=== PATIENT | female | born 1955 | race Caucasian/White ===

== ENCOUNTER → 2017-05-16 | Day surgery (SDC) | payer BC ==
[2017-05-07 15:27] VITALS: BMI 27.0
[~2017-05-16] VITALS: Ht 154.9 cm; Wt 68.2 kg
[~2017-05-16] MED LIST: BND25 PO; BND25X PO; CHOL1000 PO; CHOL100010 PO; LIDOCAINE HCL 2% 2 ML VIAL (20MG/ML) ONE; MELA1TAB3 PO; MIDAZOLAM HCL 1 MG/ML 2ML VIAL ONE; PROPOFOL IV EMULSION 10 MG/ML 20 ML VIAL IV ONE; SODIUM CHLORIDE 0.9% 500ML 500 ML IV ONE; TRAV0.00 OPB
[2017-05-16 08:28] VITALS: Ht 154.9 cm; Wt 68.2 kg
--- NOTE | 2017-05-16 08:43 | Endo History and Physical ---
History & Physical Date of Service: May 16, 2017. Chief Complaint: BARRETTS ESOPHAGUS Referring Physician: DR VALENTINE History of Present Illness 61 yo CF who presents for EGD secondary to Bear's Esophagus. Past Surgical History Hx Cardiac Surgery: No Hx Internal Defibrillator: No Hx Pacemaker: No Hx Abdominal Surgery: Yes (UTERINE ABLATION) Hx of Implantable Prosthesis: No Hx Post-Op Nausea and Vomiting: No Hx Cancer Surgery: Yes (BCC REMOVED) Hx Thoracic Surgery: No Hx Orthopedic: No Hx Urinary Tract Surgery: No Family History None Social History Smoking Status: Never Smoker Hx Substance Use: No Hx Alcohol Use: No Allergies Coded Allergies: [place] Oil (Unverified Allergy, Unknown, DIZZY, 05/16/17) Sulfa Drugs (Verified Adverse Reaction, Mild, GI SYMPTOMS,NAUSEA, 05/07/17) Current Medications Reported Home Medications Medications Dose Route/Sig Max Daily Dose Days Date Category Travatan Z (Travoprost) 0.004 % Malcolm 1 Drops OPB HS 05/07/17 Reported Melatonin (Melatonin-Pyridoxine) 1 Tab Tab 1 Mg PO HS 02/20/17 Reported Benadryl * (Diphenhydramine HCl) 25 Mg Tab 25 Mg PO HS 08/26/11 Reported Vitamin D (Cholecalciferol) 1,000 Inter.unit Tab 1,000 Inter.unit PO BID 08/26/11 Reported Vital Signs Weight (Kilograms): 68.18 Height (Feet): 5 Height (Inches): 1 Date Time Temp Pulse Resp B/P (MAP) Pulse Ox O2 Delivery O2 Flow Rate FiO2 05/16/17 08:27 36.5 72 18 139/73 (95) 97 Room Air Physical Exam General Appearance: WD/WN, no apparent distress Respiratory/Chest: Auscultation: breath sounds normal Cardiovascular: Heart Auscultation: RRR Abdomen: Bowel Sounds: normal Inspection & Palpation: soft, non-distended, no tenderness, guarding & rebound Assessment and Plan Assessment: 61 yo CF who presents for EGD secondary to Bear's Esophagus. Plan: Proceed with EGD.
--- NOTE | 2017-05-16 09:12 | GI REPORT ---
Procedure Date: 05/16/2017 8:56 AM Procedure: Upper GI endoscopy Indications: Follow-up of Bear's esophagus Medicines: Monitored Anesthesia Care Complications: No immediate complications. Estimated Blood Loss: Estimated blood loss: none. Procedure: Pre-Anesthesia Assessment: - Prior to the procedure, a History and Physical was performed, and patient medications and allergies were reviewed. The patient's tolerance of previous anesthesia was also reviewed. The risks and benefits of the procedure and the sedation options and risks were discussed with the patient. All questions were answered, and informed consent was obtained. Prior Anticoagulants: The patient has taken no previous anticoagulant or antiplatelet agents. ASA Grade Assessment: II - A patient with mild systemic disease. After reviewing the risks and benefits, the patient was deemed in satisfactory condition to undergo the procedure. After obtaining informed consent, the endoscope was passed under direct vision. Throughout the procedure, the patient's blood pressure, pulse, and oxygen saturations were monitored continuously. The scope was introduced through the mouth, and advanced to the second part of duodenum. The upper GI endoscopy was accomplished without difficulty. The patient tolerated the procedure well. Findings: There were esophageal mucosal changes consistent with short-segment Bear's esophagus present at the gastroesophageal junction. The maximum longitudinal extent of these mucosal changes was 2 cm in length. Mucosa was biopsied with a cold forceps for histology. One specimen bottle was sent to pathology. Localized mild inflammation characterized by erythema was found in the gastric antrum. Biopsies were taken with a cold forceps for histology. The examined duodenum was normal. Impression: - Esophageal mucosal changes consistent with short-segment Bear's esophagus. Biopsied. - Gastritis. Biopsied. - Normal examined duodenum. Recommendation: - Resume previous diet. - Continue present medications. - Await pathology results. - Return to primary care physician as previously scheduled. Cm Correia DO 05/16/2017 9:11:28 AM This report has been signed electronically. Note Initiated On: 05/16/2017 8:56 AM I attest to the content of the Intraoperative Record and orders documented therein, exceptions below
--- NOTE | 2017-05-16 09:15 | Discharge Instructions ---
Endoscopy Patient Instructions Date / Procedure(s) Performed May 16, 2017. EGD Allergy Information Coded Allergies: [place] Oil (Unverified Allergy, Unknown, DIZZY, 05/16/17) Sulfa Drugs (Verified Adverse Reaction, Mild, GI SYMPTOMS,NAUSEA, 05/07/17) Discharge Date / Findings May 16, 2017. Bear's esophagus s/p biopsies Gastritis s/p biopsies Medication Instructions OK to resume all medications today as prescribed Reported Home Medications Medications Dose Route/Sig Max Daily Dose Days Date Category Travatan Z (Travoprost) 0.004 % Malcolm 1 Drops OPB HS 05/07/17 Reported Melatonin (Melatonin-Pyridoxine) 1 Tab Tab 1 Mg PO HS 02/20/17 Reported Benadryl * (Diphenhydramine HCl) 25 Mg Tab 25 Mg PO HS 08/26/11 Reported Vitamin D (Cholecalciferol) 1,000 Inter.unit Tab 1,000 Inter.unit PO BID 08/26/11 Reported Provider Instructions Activity Restrictions - No exercising or heavy lifting for 24 hours. - Do not drink alcohol the day of the procedure. - Do not drive a car or operate machinery until the day after the procedure. - Do not make any important decisions or sign important papers in 24 hours after the procedure. Following Day: - Return to full activity which may include returning to work/school. Diet Start your diet with liquids and light foods (jello, soup, juice, toast). Then eat your usual diet if not nauseated. Treatment For Common After Affects For mild abdominal pain, bloating, or excessive gas: - Rest - Eat lightly - Lie on right side Follow-Up Information Follow-up with DR VALENTINE as scheduled Anesthesia Information What You Should Know You have had a procedure that required some medicine to reduce anxiety and discomfort. This treatment is called moderate sedation. After receiving the treatment, you may be sleepy, but you will be able to breathe on your own. The effects of the treatment may last for several hours. Follow these instructions along with Activity/Diet recommendations noted above: * Do NOT do anything where dizziness or clumsiness would be dangerous. * Rest quietly at home today, then you can be up and about tomorrow. * Have a responsible person stay with you the rest of today. * You may have had an I.V. today. If so, you may take the dressing off later today. Recommendations Call your doctor if: * Trouble breathing * Continuous vomiting for more than 24 hours * Temperature above 101 degrees * Severe abdominal pain or bloating * Pain not relieved by pain medicine ordered * There is increased drainage or redness from any incision * A large amount of rectal bleeding greater than 2-3 tablespoons. (If you had a polyp/s removed or have hemorrhoids, a small amount of blood - from the rectum is to be expected.) * You have any unanswered questions or concerns. IN THE EVENT OF A SERIOUS EMERGENCY, GO TO THE NEAREST EMERGENCY ROOM Your discharge instructions were prepared by provider Cm Correia. Patient Instructions Signature Page Meagan Givens Patient (or Guardian) Signature/Date: I have read and understand the instructions given to me by my caregivers. Caregiver/RN/Doctor Signature/Date: The above-named patient and/or guardian has received patient instructions on this date. + Original Patient Signature Page (only) stays with chart. Please make copy for patient.
--- NOTE | 2017-05-16 09:42 | Anesthesiology Progress Note ---
Anesthesia Post Op Note Date & Time May 16, 2017 at 09:42 Vital Signs Pain Intensity: 0 Vital Signs Past 12 Hours Date Time Temp Pulse Resp B/P (MAP) Pulse Ox O2 Delivery O2 Flow Rate FiO2 05/16/17 09:30 64 16 113/65 (81) 95 Room Air 05/16/17 09:15 69 14 111/65 (80) 95 Room Air 05/16/17 08:27 36.5 72 18 139/73 (95) 97 Room Air Notes Mental Status: alert / awake / arousable, participated in evaluation Pt Amnestic to Procedure: Yes Nausea / Vomiting: adequately controlled Pain: adequately controlled Airway Patency, RR, SpO2: stable & adequate BP & HR: stable & adequate Hydration State: stable & adequate Anesthetic Complications: no major complications apparent
[2017-05-16 09:45] VITALS: BP 123/77; PULSE 63; O2SAT 95
== END | disposition home or self-care (01) ==
LOC: C.GI 08:11
PROVIDERS: ATTEND Internal Medicine
DX: K22.70 Barrett's esophagus without dysplasia (principal); K29.50 Unspecified chronic gastritis without bleeding

== ENCOUNTER → 2017-11-26 | Day surgery (SDC) | payer BC ==
[2017-11-14 15:35] VITALS: Ht 156.2 cm; Wt 68.2 kg
[~2017-11-26] VITALS: Ht 156.2 cm; Wt 68.2 kg
[~2017-11-26] MED LIST changes: -BND25 PO; -BND25X PO; -CHOL1000 PO; -CHOL100010 PO; +CHOL2000 PO; +LANS15CA6 PO; +ONDANSETRON INJ 2 MG/ML 2 ML VIAL ONE
--- NOTE | 2017-11-26 08:40 | Endo History and Physical ---
History & Physical Date of Service: Nov 26, 2017. Chief Complaint: Bear's Esophagus Referring Physician: Dr. Santiago History of Present Illness 62 yo CF who presents for colonoscopy secondary to Bear's Esophagus. Past Surgical History Hx Cardiac Surgery: No Hx Internal Defibrillator: No Hx Pacemaker: No Hx Abdominal Surgery: Yes (UTERINE ABLATION) Hx of Implantable Prosthesis: No Hx Post-Op Nausea and Vomiting: No Hx Cancer Surgery: Yes (BCC REMOVED) Hx Thoracic Surgery: No Hx Orthopedic: No Hx Urinary Tract Surgery: No Family History None Social History Smoking Status: Never Smoker Hx Substance Use: No Hx Alcohol Use: No Allergies Coded Allergies: [place] Oil (Verified Allergy, Unknown, DIZZY, 11/14/17) Sulfa Drugs (Verified Adverse Reaction, Mild, GI SYMPTOMS,NAUSEA, 11/14/17) Current Medications Reported Home Medications Medications Dose Route/Sig Max Daily Dose Days Date Category Vitamin D3 (Cholecalciferol) 2,000 Unit Cap 1 Cap PO BID 11/14/17 Reported Prevacid (Lansoprazole) 15 Mg Capcr 15 Mg PO DAILY AT 0300 11/14/17 Reported Travatan Z (Travoprost) 0.004 % Malcolm 1 Drops OPB HS 05/07/17 Reported Melatonin (Melatonin-Pyridoxine) 1 Tab Tab 1 Mg PO HS 02/20/17 Reported Vital Signs Weight (Kilograms): 68.18 Height (Feet): 5 Height (Inches): 1.5 Physical Exam General Appearance: WD/WN, no apparent distress Respiratory/Chest: Auscultation: breath sounds normal Cardiovascular: Heart Auscultation: RRR Abdomen: Bowel Sounds: normal Inspection & Palpation: soft, non-distended, no tenderness, guarding & rebound Assessment and Plan Assessment: 62 yo CF who presents for colonoscopy secondary to Bear's Esophagus. Plan: Proceed with EGD.
--- NOTE | 2017-11-26 09:30 | GI REPORT ---
Procedure Date: 11/26/2017 8:44 AM Procedure: Upper GI endoscopy Indications: Follow-up of Bear's esophagus Medicines: Monitored Anesthesia Care Complications: No immediate complications. Estimated Blood Loss: Estimated blood loss: none. Procedure: Pre-Anesthesia Assessment: - Prior to the procedure, a History and Physical was performed, and patient medications and allergies were reviewed. The patient's tolerance of previous anesthesia was also reviewed. The risks and benefits of the procedure and the sedation options and risks were discussed with the patient. All questions were answered, and informed consent was obtained. Prior Anticoagulants: The patient has taken no previous anticoagulant or antiplatelet agents. ASA Grade Assessment: II - A patient with mild systemic disease. After reviewing the risks and benefits, the patient was deemed in satisfactory condition to undergo the procedure. After obtaining informed consent, the endoscope was passed under direct vision. Throughout the procedure, the patient's blood pressure, pulse, and oxygen saturations were monitored continuously. The scope was introduced through the mouth, and advanced to the second part of duodenum. The upper GI endoscopy was accomplished without difficulty. The patient tolerated the procedure well. Findings: There were esophageal mucosal changes suspicious for short-segment Bear's esophagus present at the gastroesophageal junction. The maximum longitudinal extent of these mucosal changes was 1 cm in length. Biopsies were taken with a cold forceps for histology. The stomach was normal. The examined duodenum was normal. Impression: - Esophageal mucosal changes suspicious for short-segment Bear's esophagus. Biopsied. - Normal stomach. - Normal examined duodenum. Recommendation: - Resume previous diet. - Continue present medications. - Await pathology results. - Return to primary care physician as previously scheduled. Cm Correia, DO 11/26/2017 9:29:44 AM This report has been signed electronically. Note Initiated On: 11/26/2017 8:44 AM I attest to the content of the Intraoperative Record and orders documented therein, exceptions below
--- NOTE | 2017-11-26 09:31 | Discharge Instructions ---
Endoscopy Patient Instructions Date / Procedure(s) Performed Nov 26, 2017. EGD Allergy Information Coded Allergies: [place] Oil (Verified Allergy, Unknown, DIZZY, 11/14/17) Sulfa Drugs (Verified Adverse Reaction, Mild, GI SYMPTOMS,NAUSEA, 11/14/17) Discharge Date / Findings Nov 26, 2017. Bear's Esophagus s/p biopsies Medication Instructions OK to resume all medications today as prescribed Reported Home Medications Medications Dose Route/Sig Max Daily Dose Days Date Category Vitamin D3 (Cholecalciferol) 2,000 Unit Cap 1 Cap PO BID 11/14/17 Reported Prevacid (Lansoprazole) 15 Mg Capcr 15 Mg PO DAILY AT 0300 11/14/17 Reported Travatan Z (Travoprost) 0.004 % Malcolm 1 Drops OPB HS 05/07/17 Reported Melatonin (Melatonin-Pyridoxine) 1 Tab Tab 1 Mg PO HS 02/20/17 Reported Provider Instructions Activity Restrictions - No exercising or heavy lifting for 24 hours. - Do not drink alcohol the day of the procedure. - Do not drive a car or operate machinery until the day after the procedure. - Do not make any important decisions or sign important papers in 24 hours after the procedure. Following Day: - Return to full activity which may include returning to work/school. Diet Start your diet with liquids and light foods (jello, soup, juice, toast). Then eat your usual diet if not nauseated. Treatment For Common After Affects For mild abdominal pain, bloating, or excessive gas: - Rest - Eat lightly - Lie on right side Follow-Up Information Follow-up with Dr. Vance Santiago as scheduled Anesthesia Information What You Should Know You have had a procedure that required some medicine to reduce anxiety and discomfort. This treatment is called moderate sedation. After receiving the treatment, you may be sleepy, but you will be able to breathe on your own. The effects of the treatment may last for several hours. Follow these instructions along with Activity/Diet recommendations noted above: * Do NOT do anything where dizziness or clumsiness would be dangerous. * Rest quietly at home today, then you can be up and about tomorrow. * Have a responsible person stay with you the rest of today. * You may have had an I.V. today. If so, you may take the dressing off later today. Recommendations Call your doctor if: * Trouble breathing * Continuous vomiting for more than 24 hours * Temperature above 101 degrees * Severe abdominal pain or bloating * Pain not relieved by pain medicine ordered * There is increased drainage or redness from any incision * A large amount of rectal bleeding greater than 2-3 tablespoons. (If you had a polyp/s removed or have hemorrhoids, a small amount of blood - from the rectum is to be expected.) * You have any unanswered questions or concerns. IN THE EVENT OF A SERIOUS EMERGENCY, GO TO THE NEAREST EMERGENCY ROOM Your discharge instructions were prepared by provider Cm Correia. Patient Instructions Signature Page Meagan Givens Patient (or Guardian) Signature/Date: I have read and understand the instructions given to me by my caregivers. Caregiver/RN/Doctor Signature/Date: The above-named patient and/or guardian has received patient instructions on this date. + Original Patient Signature Page (only) stays with chart. Please make copy for patient.
[2017-11-26 09:41] VITALS: BP 111/64; PULSE 65; O2SAT 94
--- NOTE | 2017-11-26 10:15 | Anesthesiology Progress Note ---
Anesthesia Post Op Note Date & Time Nov 26, 2017 at 10:15 Vital Signs Pain Intensity: 0 Vital Signs Past 12 Hours Date Time Temp Pulse Resp B/P (MAP) Pulse Ox O2 Delivery O2 Flow Rate FiO2 11/26/17 09:41 65 18 111/64 (80) 94 Room Air 11/26/17 09:36 68 16 108/63 (78) 96 Nasal Cannula 3 11/26/17 08:42 36.3 70 20 138/80 (99) 94 Room Air Notes Mental Status: alert / awake / arousable, participated in evaluation Pt Amnestic to Procedure: Yes Nausea / Vomiting: adequately controlled Pain: adequately controlled Airway Patency, RR, SpO2: stable & adequate BP & HR: stable & adequate Hydration State: stable & adequate Anesthetic Complications: no major complications apparent
== END | disposition home or self-care (01) ==
LOC: C.GI 08:24
PROVIDERS: ATTEND Internal Medicine
DX: Z09 Encounter for follow-up examination after completed treatment for conditions other than malignant neoplasm (principal); J45.909 Unspecified asthma, uncomplicated; Z88.2 Allergy status to sulfonamides; Z98.890 Other specified postprocedural states

== ENCOUNTER → 2017-11-29 | Outpatient (CLI) | payer BC ==
[~2017-11-29] MED LIST changes: -LIDOCAINE HCL 2% 2 ML VIAL (20MG/ML) ONE; -MIDAZOLAM HCL 1 MG/ML 2ML VIAL ONE; -ONDANSETRON INJ 2 MG/ML 2 ML VIAL ONE; -PROPOFOL IV EMULSION 10 MG/ML 20 ML VIAL IV ONE; -SODIUM CHLORIDE 0.9% 500ML 500 ML IV ONE
== END | disposition home or self-care (01) ==
LOC: C.MAMM 14:36
PROVIDERS: ATTEND Family Medicine
DX: M85.852 Other specified disorders of bone density and structure, left thigh (principal); E28.39 Other primary ovarian failure

== ENCOUNTER → 2018-02-19 | Outpatient (CLI) | payer BC | END | disposition home or self-care (01) | LOC: C.PAPS 18:22 | PROVIDERS: ATTEND Physician Assistant | DX: Z01.419 Encounter for gynecological examination (general) (routine) without abnormal findings (principal); N95.2 Postmenopausal atrophic vaginitis ==

== ENCOUNTER → 2018-03-11 | Outpatient (CLI) | payer BC ==
--- NOTE | 2018-03-11 15:25 | MAMMOGRAPHY REPORT ---
BILATERAL DIGITAL SCREENING MAMMOGRAM TOMOSYNTHESIS WITH CAD: 03/11/2018 CLINICAL HISTORY: Routine screening. Patient has no complaints. TECHNIQUE: Breast tomosynthesis in addition to standard 2D mammography was performed. Current study was also evaluated with a Computer Aided Detection (CAD) system. COMPARISON: Comparison is made to exams dated: 09/17/2015 mammogram, 09/16/2014 mammogram, 03/15/2010 mammogram - [facility], 10/19/2005 mammogram, 11/06/1989 mammogram, and 10/04/2015 ul trasound - [facility]. BREAST COMPOSITION: There are scattered areas of fibroglandular density in both breasts. FINDINGS: There are stable asymmetries in the left breast that appears similar dating back to at leas t 09/17/2015 and with greater than 2 years of stability are considered benign. There are scattered p unctate microcalcifications and minimal vascular calcification in the breasts. No new suspicious mas s, architectural distortion or cluster of microcalcifications is seen. IMPRESSION: ACR BI-RADS CATEGORY 1: NEGATIVE There is no mammographic evidence of malignancy. A 1 year screening mammogram is recommended. The pa tient will receive written notification of the results. Approximately 10% of breast cancers are not detected with mammography. A negative mammographic report should not delay biopsy if a clinically suggestive mass is present. Candace Aguilar M.D. ay/:03/11/2018 13:30:59 Project Development Coordinator: Lamar THOMPSON)([place]), [facility] letter sent: Normal 1/2 BI-RADS Code: ACR BI-RADS Category 1: Negative
== END | disposition home or self-care (01) ==
LOC: C.MAMM 12:46
PROVIDERS: ATTEND Family Medicine
DX: Z12.31 Encounter for screening mammogram for malignant neoplasm of breast (principal)